=== PATIENT | male | born 1995 | race Caucasian/White ===

== ENCOUNTER 2017-08-20 18:55 | Emergency (ER) | payer OTHER ==
[~2017-08-20] VITALS: Ht 162.6 cm; Wt 54.4 kg
[~2017-08-20 18:55] MED LIST: ALBU0.0939 IH
[2017-08-20 19:12] VITALS: BP 157/77
--- NOTE | 2017-08-20 19:15 | NUR ---
TO LOBBY , A/W MEJAI MENDENHALL, GWEN ERMD NOTED
--- NOTE | 2017-08-20 19:38 | NUR ---
PT TAKEN TO BED 9
--- NOTE | 2017-08-20 19:38 | NUR ---
Patient c/o ring stuck on L index finger a few years ago however per mother this happened a few days ago. L index finger is swollen and entire hand is covered in pen ink. Patient admits to having feeling on finger above the ring. No acute distress noted, placed on monitor and will continue to monitor closely.
[2017-08-20 20:24] VITALS: BP 139/55
--- NOTE | 2017-08-20 20:24 | NUR ---
Pupils equal and reactive to light bilaterally. No facial droop noted. No smile deficit noted. Speech normal for patient. Patient is alert and oriented to person, place, time and event. Bilateral hand patient care assistant equal. Bilateral foot push equal. Patient does not wish to proceed with medical care recommended by DR BARAJAS. Patient given information related to possible complications, up to and including , which could occur as a result of leaving hospital at this time. Patient verbalizes understanding of risks involved leaving against medical advice. Patient has signed AMA form. PT STS " I REFUSE TO LET MY MOM SIGN ANY OF MY PAPERWORK. SHE DOES NOT HAVE GUARDIANSHIP OR MY PERMISIION AND IM OVER 18. SHE CAN NOT STOP ME FROM LEAVING AGAIN MEDICAL ADVICE. I KNOW MY RIGHTS, I DO NOT WANT TO STAY HERE OR WANT ANY CARE FROM THIS DR, HOSPITAL OR STAFF. I WILL NOT TAKE ANY MEDICATION YOU WANT TO GIVE ME.I DO NOT WANT ANY ONE TO CLEAN, CUT OFF THE RING ON MY FINGER OR GIVE ME ANY PAIN MEDICATION "
== END 2017-08-20 20:24 | disposition left against medical advice (07) ==
LOC: MED 18:55
DX: R60.0 Localized edema (principal); M79.645 Pain in left finger(s); Z53.29 Procedure and treatment not carried out because of patient's decision for other reasons; W49.04XA Ring or other jewelry causing external constriction, initial encounter; Y93.89 Activity, other specified; Y99.8 Other external cause status; Y92.89 Other specified places as the place of occurrence of the external cause
CPT/HCPCS: 99283